=== PATIENT | female | born 1960 | race Caucasian/White ===

== ENCOUNTER 2018-05-24 14:33 | Outpatient (CLI) | payer BC | END 2018-05-24 14:34 | disposition home or self-care (01) | LOC: BICMAMMO 14:33 | PROVIDERS: ATTEND Obstetrics & Gynecology | DX: Z12.31 Encounter for screening mammogram for malignant neoplasm of breast (principal) | CPT/HCPCS: 77063; 77067 ==

== ENCOUNTER 2018-12-07 12:17 | Outpatient (CLI) | payer BC ==
--- NOTE | 2018-12-07 14:31 | RAD ---
2 VIEWS RIGHT HIP: Date: 12/07/18 HISTORY: Pain. FINDINGS: Contour of femoral head maintained. Joint space preserved. No fracture. IMPRESSION: Unremarkable 2 views right hip. POS: [facility]
--- NOTE | 2018-12-07 14:32 | RAD ---
3 VIEWS RIGHT KNEE: Date: 12/07/18 HISTORY: Pain. FINDINGS: Joint spaces preserved. No fracture or malalignment. No significant joint effusion. IMPRESSION: Unremarkable 3 views right knee. POS: [facility]
== END 2018-12-07 12:18 | disposition home or self-care (01) ==
LOC: BICRAD 12:17
PROVIDERS: ATTEND Internal Medicine
DX: M25.551 Pain in right hip (principal); M25.561 Pain in right knee

== ENCOUNTER 2019-05-03 07:31 | Outpatient (CLI) | payer BC ==
--- NOTE | 2019-05-03 09:47 | ULT ---
BILATERAL RENAL ULTRASOUND WITH DOPPLER: HISTORY: Chronic renal failure. FINDINGS: The right kidney measures 9.1 cm in length and the left kidney measures 11.8 cm in length. No definit e mass or hydronephrosis is seen. The urinary bladder is not visualized. The peak systolic velocity in the right renal artery measures 192 cm per second and the left renal ar misty measures 146 cm per second. The renal artery to aortic ratio is measured at 2.04 on the right an d 1.55 on the left. The resistive indices measure 0.58 on the right and 0.62 on the left. IMPRESSION: 1. No evidence of high grade obstruction. 2. Elevated peak systolic velocity in the right renal artery with normal renal artery to aortic ratio and resistive index. If there is high clinical concern for renal artery stenosis further evaluation with CTA or MRA would be helpful. POS: [facility]
== END 2019-05-03 07:32 | disposition home or self-care (01) ==
LOC: BICULT 07:31
PROVIDERS: ATTEND Internal Medicine Nephrology
DX: I12.9 Hypertensive chronic kidney disease with stage 1 through stage 4 chronic kidney disease, or unspecified chronic kidney disease (principal); N18.9 Chronic kidney disease, unspecified; E03.9 Hypothyroidism, unspecified; E78.5 Hyperlipidemia, unspecified; M19.90 Unspecified osteoarthritis, unspecified site
CPT/HCPCS: 76700; 76770

== ENCOUNTER 2023-07-22 13:49 | Outpatient (CLI) | payer BC | END 2023-07-22 13:50 | disposition home or self-care (01) | LOC: BICRAD 13:49 | PROVIDERS: ATTEND Internal Medicine Nephrology | DX: M47.816 Spondylosis without myelopathy or radiculopathy, lumbar region (principal); M41.9 Scoliosis, unspecified; M51.36 Other intervertebral disc degeneration, lumbar region; M46.06 Spinal enthesopathy, lumbar region; M89.38 Hypertrophy of bone, other site; M43.17 Spondylolisthesis, lumbosacral region; M43.16 Spondylolisthesis, lumbar region | CPT/HCPCS: 72072; 72100 ==